=== PATIENT | male | born 1985 | race Caucasian/White ===

== ENCOUNTER 2019-01-02 12:10 | Emergency (ER) | payer OTHER ==
[~2019-01-02] VITALS: Ht 182.9 cm; Wt 79.4 kg
[2019-01-02] MEDS ORDERED: NAPROSYN500 M1 PO (14:26)
[2019-01-02] MEDS ORDERED: FLEXERIL PO (14:26)
[2019-01-02 14:32] VITALS: BP 125/78
== END 2019-01-02 14:33 | disposition home or self-care (01) ==
LOC: M.ERS 12:10
DX: S29.012A Strain of muscle and tendon of back wall of thorax, initial encounter (principal); V49.49XA Driver injured in collision with other motor vehicles in traffic accident, initial encounter; Y93.89 Activity, other specified; Y92.89 Other specified places as the place of occurrence of the external cause; Y99.8 Other external cause status